=== PATIENT | male | born 1955 | race Caucasian/White ===

== ENCOUNTER 2021-01-15 20:44 | Emergency (ER) | payer OTHER, MEDICARE ==
[~2021-01-15] VITALS: Ht 175.3 cm; Wt 64.5 kg
[~2021-01-15 20:44] MED LIST: NO MEDICATIONS
[2021-01-15] MEDS ORDERED: morphine 10mg/ml inj. IM ONE (21:00)
[2021-01-15] MEDS ORDERED: HYDROcodone/acetaminophen 5mg/325mg tablet PO ONE (21:05)
--- NOTE | 2021-01-15 21:24 | NUR ---
Shoulder sling placed on patient for comfort.
[2021-01-15] MEDS ORDERED: ondansetron/PF 4mg/2ml inj IV ONE (21:45)
[2021-01-15] MEDS ORDERED: iohexol 300mg/ml 100ml inj. ONE (21:47)
--- NOTE | 2021-01-15 22:12 | NUR ---
Pt in CT. saw pt at 2139. pt placed in [facility] spinal precautions. Labs have been drawn. IV line initiated. Pt placed on quality assurance monitor final. Pt hemodynamically stable. Pt medicated for nausea and pain. Full body inspected. [place] provided.
[2021-01-15 22:14] LABS: BASOPHILS # (AUTO) 0.1 X10'3 (0-0.2); BASOPHILS % (AUTO) 0.5 % (0-1); EOSINOPHILS # (AUTO) 0.2 X10'3 (0-0.9); HEMATOCRIT 42.8 % (42.0-52.0); HEMOGLOBIN 14.1 g/dl (14.0-17.9); LYMPHOCYTES # (AUTO) 1.6 X10'3 (1.1-4.8); LYMPHOCYTES % (AUTO) 9.7 % (21-51); MEAN CORPUSCULAR HGB CONC 32.8 g/dL (33.0-36.5); MEAN CORPUSCULAR VOLUME 97.5 FL (78-98); MEAN PLATELET VOLUME 7.6 FL (7.4-10.4); MONOCYTES # (AUTO) 0.8 X10'3 (0-0.9); NEUTROPHILS # (AUTO) 13.8 X10'3 (1.8-7.7); NEUTROPHILS % (AUTO) 83.8 % (42-75); PLATELET COUNT 273 X10'3 (140-440); RED CELL DISTRIBUTION WIDTH 13.6 % (11.5-14.5); WHITE BLOOD COUNT 16.5 X10'3 (4.5-11.0)
[2021-01-15 22:29] LABS: ALANINE AMINOTRANSFERASE 23 U/L (12-78); ALBUMIN 3.3 G/DL (3.4-5.0); ALKALINE PHOSPHATASE 82 IU/L (46-116); ANION GAP 8 (8-16); ASPARTATE AMINO TRANSFERASE 16 U/L (10-37); BILIRUBIN,TOTAL 0.2 MG/DL (0.1-1.0); BLOOD UREA NITROGEN 14 MG/DL (7-18); BUN/CREATININE RATIO 10.4 (5.4-32.0); CALCIUM 8.2 MG/DL (8.5-10.1); CHLORIDE 108 MMOL/L (99-107); CREATININE 1.34 MG/DL (0.60-1.10); GLUCOSE 161 MG/DL (70-104); POTASSIUM 4.1 MMOL/L (3.5-5.1); SODIUM 144 MMOL/L (135-145); TOTAL CARBON DIOXIDE 27.6 MMOL/L (24-32); TOTAL PROTEIN 6.7 G/DL (6.4-8.2); eGFR 53 ML/MIN
[2021-01-15] MEDS ORDERED: ONDA4TAB6 PO (23:04)
[2021-01-15] MEDS ORDERED: HYDR-3964 PO (23:04)
[2021-01-15] MEDS ORDERED: TETanus/Pertussis (Acell)/Diphther VAC/PF (Tdap-Adult) 0.5ml syringe IMVAC ONE (23:05)
[2021-01-15] MEDS ORDERED: bacitracin 15gm ointment TP ONE (23:05)
[2021-01-15 23:40] VITALS: BP 125/81
== END 2021-01-15 23:45 | disposition home or self-care (01) ==
LOC: ER 20:45
DX: S40.812A Abrasion of left upper arm, initial encounter (principal); S40.811A Abrasion of right upper arm, initial encounter; S30.811A Abrasion of abdominal wall, initial encounter; S80.211A Abrasion, right knee, initial encounter; Z86.73 Personal history of transient ischemic attack (TIA), and cerebral infarction without residual deficits; Z79.899 Other long term (current) drug therapy; V20.4XXA Motorcycle driver injured in collision with pedestrian or animal in traffic accident, initial encounter; Y93.89 Activity, other specified; Y92.89 Other specified places as the place of occurrence of the external cause; Y99.8 Other external cause status
CPT/HCPCS: 29105; 36415; 70450; 71260; 72125; 73030; 74177; 80053; 85025; 85610; 86885; 86900; 86901; 90471; 90715; 96372; 96374; 99285; J2270; J2405; Q9967